=== PATIENT | male | born 1940 | race Caucasian/White ===

== ENCOUNTER 2018-11-15 12:47 | Observation (INO) ==
[2018-11-15] MEDS ORDERED: ASPIRIN PO ONE (12:56)
--- NOTE | 2018-11-15 13:33 | PROVIDER DOCUMENTATION ---
This chart was entered by Ruth Mojica Scribe, acting as scribe for Owen Kaplan MD. HPI-Chest Pain - General Chief Complaint: Chest Pain Stated Complaint: CHEST PAIN Time Seen by Provider: 11/15/18 12:57 Source: patient Allergies/Adverse Reactions: Patient Allergies Allergy/AdvReac Type Severity Reaction Status Date / Time No Known Allergies Allergy Verified 11/15/18 12:55 Home Medications: Home Medication List Medication Instructions Recorded Confirmed Last Taken Type Brimonidine 0.1% Ophth Soln 1 drop BOTH EYES TID@0800,1300,1800 07/25/12 11/15/18 11/15/18 09:00 History [Alphagan P 0.1% Ophth Soln] Dorzolamide/Timolol Ophth Soln 1 drop BOTH EYES TID@0800,1300,1800 07/25/12 11/15/18 11/15/18 09:00 History [Cosopt Ophth Soln] Dutasteride [Avodart] 0.5 mg PO DAILY 07/25/12 11/15/18 11/15/18 09:00 History Rosuvastatin Calcium [Crestor] 5 mg PO EVERY OTHER DAY 07/25/12 11/15/18 11/14/18 09:00 History Bupropion HCl 75 mg PO BID 11/15/18 11/15/18 11/15/18 09:00 History Clonazepam 0.5 mg PO HS 11/15/18 11/15/18 11/14/18 21:00 History Insulin Glargine,Hum.rec.anlog 26 unit SQ QAM@0800 11/15/18 11/15/18 11/15/18 08:00 History [Lantus Solostar] Liraglutide [Victoza] 1.8 mg SUBQ HS 11/15/18 11/15/18 11/14/18 21:00 History Losartan Potassium 25 mg PO DAILY 11/15/18 11/15/18 11/15/18 09:00 History Netarsudil Mesylat/Latanoprost 2.5 ml OP HS 11/15/18 11/15/18 11/15/18 09:00 History [Rocklatan 0.02%-0.005% Eye Drp] Tamsulosin [Flomax] 0.4 mg PO BID 11/15/18 11/15/18 11/15/18 09:00 History - History of Present Illness-CP Nature of Presenting Problem: Patient is a 78 year old male who presents with left side chest pain. States chest pain started last night. Denies shortness of breath. Location: reports: other (left side) Chest Pain Radiation: reports: no radiation Quality of Pain: reports: aching Severity in ED: mild Onset/Duration: last night Timing: still present Context/Activities at Onset: reports: light activity Modifying Factors: worse with: movement Associated Symptoms: reports: denies symptoms Similar Symptoms Previously?: Yes Recently Seen Here or By Another Healthcare Provider: No Review of Systems - Adult - REVIEW OF SYSTEMS - ADULT Constitutional: reports: no symptoms reported. denies: chills, fever, fatique Eyes: reports: no symptoms reported Ears, Nose, Mouth & Throat: reports: no symptoms reported Cardiovascular: reports: see HPI, chest pain. denies: irregular heart rate, palpitations Respiratory: reports: no symptoms reported. denies: cough, shortness of breath, wheezing Gastrointestinal: reports: no symptoms reported Genitourinary: reports: no symptoms reported Musculoskeletal: reports: no symptoms reported Integumentary: reports: no symptoms reported Neurological: reports: no symptoms reported Psychiatric: reports: no symptoms reported Endocrine: reports: no symptoms reported Hematologic/Lymphatic: reports: no symptoms reported Allergic/Immunologic: reports: no symptoms reported All Other Systems: Reviewed and Negative Past History - Adult - PAST MEDICAL HISTORY-ADULT Review of Records: reports: Old Records Reviewed, Social history reviewed & non- contributory. Major Childhood Illnesses: reports: denies history Cardiovascular: reports: HTN Respiratory: reports: denies history Gastrointestinal: reports: denies history Obstetrical/Gynecological: reports: denies history Genitourinary: reports: kidney disease, prostatitis Musculoskeletal: reports: denies history Neurological: reports: denies history Endocrine/Immune: reports: Diabetes Other Conditions: reports: denies history, cataract/glaucoma - PRIOR SURGERIES/PROCEDURES Surgical/Procedure History: reports: reviewed, not pertinent, back/neck (back), other (cataract removal, hemorrhoidectomy) - IMMUNIZATION STATUS Childhood Immunizations: See Nurse Assessment Flu Vaccine: See Nurse Assessment - FAMILY HISTORY Family History: reviewed, not pertinent - SOCIAL HISTORY Smoking: denies Substance Use: denies Physical Exam-General - PHYSICAL EXAM-ADULT Initial Vital Signs Reviewed: Yes - CONSTITUTIONAL General Appearance: alert, no apparent distress. negative: lethargic - HEAD, EARS, NOSE, MOUTH & THROAT HENMT: normocephalic/atraumatic, moist mucous membranes. negative: angioedema - RESPIRATORY Respiratory: chest non-tender, lungs clear, normal breath sounds. negative: crackles, rhonchi - CARDIOVASCULAR Cardiovascular: normal peripheral pulses, regular rate, rhythm. negative: tachycardia - GASTROINTESTINAL (ABDOMEN) Abdominal Exam: normal bowel sounds, non tender, soft. negative: guarding, rigid - MUSCULOSKELETAL Extremity: normal inspection. negative: deformity, erythema - SKIN Integumentary: normal color, normal turgor, warm/dry. negative: diaphoresis, ecchymosis, jaundice - NEUROLOGIC Neurologic: grossly normal. negative: aphasia, facial droop - PSYCHIATRIC Psych/Mental Status: normal mood/affect, oriented x 3. negative: anxious - HEART Score HEART Score: History: Moderately Suspicious HEART Score: ECG: Non-Specific Repolarization Disturbance/LBBB/PM HEART Score: Age: > or = 65 Years HEART Score: Risk Factors for Atherosclerotic Disease: > or = 3 Risk Factors or History of Atherosclerotic Disease HEART Score: Troponin: < or = Normal Limit Total HEART Score:: 6 Progress - PLAN OF CARE/RESULTS Result Diagrams: 11/15/18 13:30 11/15/18 13:30 - EKG 1 Time of EKG reading by physician:: 13:00 EKG Read and Signed by:: Owen Kaplan EKG Interpretation (*Must complete 3 of following elements*): Abnormal Rate: 63 Rhythm: sinus rhythm with 1st degree AV block [place]: normal Comments: otherwise normal ECG - XRAY 1 XRAY Study: Chest Impression: See EMR Report ( EXAM: CHEST-2 VIEWS HISTORY: chest pain TECHNIQUE: Chest two views COMPARISON: 06/16/2014 FINDINGS: The lungs are well expanded. The heart is not enlarged. The vessels are not distended. There are no infiltrates. No pleural effusions. Compression fracture in the upper lumbar spine. IMPRESSION: No acute abnormality. Electronically signed by Malick Alejandre 11/15/2018 1:44 PM 11/15/18 1344 Interpreting Physician: Malick Alejandre MD Dictated Date/Time: 11/15/18 1343 cc: Owen Kaplan MD; Yariel Pena MD) - CONSULTS/PCP/HOSPITALIST Notification #1 *Consult/PCP/Hospitalist*: Dr. Boone Time Discussed: 14:57 Reason/Comments: Dr. Kaplan consulted with Dr. Boone about patient Consult Disposition: other (patient is a Dr. Pena patient.) #2 Consult: Dr. Pena Time Discussed: 15:03 Reason/Comments: Dr. Kaplan consulted with Dr. Pena about patient. Consult Disposition: Admit, other (consult cardiology) Departure - Departure Date of Disposition Decision: 11/16/18 Time of Disposition Decision: 16:10 DIAGNOSIS: Chest pain Disposition: ADMITTED INPATIENT 09 Certified Medical Emergency: Emergent Condition: Stable - Critical Care Note This patient required my direct & personal management of CC.: No Attestation - Physician/ QUINTIN Attestation Patient care was provided by Advanced Practice Provider:: No The physician spent face to face time with patient:: Yes Advanced Practice Provider documentation review:: Supervising physician onsite and consulted in the evaluation and care of this patient. The physician did have a face to face encounter with the patient. This chart was documented by the indicated scribe, (Ruth Mojica Scribe) and accurately reflects the services I performed and decisions made by me, Owen Kaplan MD, as attested by the provider's signature.
--- NOTE | 2018-11-15 13:34 | EKG Report ---
Test Performed on : 11/15/2018 1:00:21 PM Test Reason : chest pain Blood Pressure : / mmHG Vent. Rate : 063 BPM Atrial Rate : 063 BPM P-R Int : 326 ms QRS Dur : 080 ms QT Int : 400 ms P-R-T Axes : 024 015 054 degrees QTc Int : 409 ms Sinus rhythm. with 1st degree AV block. Otherwise normal ECG No previous ECGs available Unconfirmed Result
--- NOTE | 2018-11-15 13:46 | Diag Imaging Result Doc PS360 ---
EXAM: CHEST-2 VIEWS HISTORY: chest pain TECHNIQUE: Chest two views COMPARISON: 06/16/2014 FINDINGS: The lungs are well expanded. The heart is not enlarged. The vessels are not distended. There are no infiltrates. No pleural effusions. Compression fracture in the upper lumbar spine. IMPRESSION: No acute abnormality. Electronically signed by Malick Alejandre 11/15/2018 1:44 PM
[2018-11-15 14:06] LABS: HEMATOCRIT 36.6 % (42.0-52.0); HEMOGLOBIN 11.8 g/dL (14.0-18.0); MCH 30.5 PG (27-31); MCHC 32.2 g/dL (33-37); MCV 94.6 FL (81-99); RBC 3.87 XMIL (4.7-6.1); RDW 11.7 % (11.5-14.5); WBC 6.96 X1000 (4.8-10.8)
[2018-11-15 14:07] LABS: BASO# 0.04 X1000 (0.0-0.2); BASO% 0.6 % (0.0-0.8); EOS# 0.32 X1000 (0.0-0.7); EOS% 4.6 % (0.0-10.0); IMM GRAN# 0.02 X1000 (0.0-0.04); IMM GRAN% 0.3 % (0.0-0.5); LYMPH# 1.98 X1000 (1.2-3.4); LYMPH% 28.4 % (20.5-51.1); MONO# 0.74 X1000 (0.11-0.59); MONO% 10.6 % (1.7-9.3); MPV 11.9 FL (7.4-10.4); NEUT# 3.86 X1000 (1.4-6.5); NEUT% 55.5 % (42.2-75.2); PLT 186 X1000 (130-400)
[2018-11-15 14:22] LABS: INR 0.9; PROTIME 12.6 Seconds (11.0-16.0)
[2018-11-15 14:23] LABS: ALBUMIN 4.3 g/dL (3.5-5.0); CALCIUM 9.6 mg/dL (8.8-10.2); CREATININE 1.5 mg/dL (0.7-1.2); POTASSIUM 4.6 mmol/L (3.5-5.1); PTT 28.8 Seconds (22.3-41.8); TOTAL BILIRUBIN 0.3 mg/dL (0.20-1.00); TOTAL PROTEIN 6.4 g/dL (6.3-8.3)
[2018-11-15] MEDS ORDERED: ALPHAGAN 0.2% OPHTH SOLN OPH ONE (18:44)
[2018-11-15] MEDS ORDERED: COSOPT OPHTH SOLN OPH ONE (18:45)
[2018-11-15] MEDS ORDERED: INSULIN PEN NEEDLES MISC PRN (18:53)
[2018-11-15] MEDS: FLOMAX PO SCH (20:37)
[2018-11-15] MEDS: WELLBUTRIN PO SCH (20:38)
[2018-11-15] MEDS ORDERED: VICTOZA SUBQ SCH (21:00)
[2018-11-15] MEDS ORDERED: PATIENT'S OWN MED OPH SCH (21:00)
[2018-11-15] MEDS ORDERED: KLONOPIN PO SCH (21:00)
--- NOTE | 2018-11-15 22:14 | EKG Report ---
Test Performed on : 11/15/2018 9:31:26 PM Test Reason : chest pain Blood Pressure : / mmHG Vent. Rate : 060 BPM Atrial Rate : 060 BPM P-R Int : 308 ms QRS Dur : 082 ms QT Int : 410 ms P-R-T Axes : 061 028 063 degrees QTc Int : 410 ms Sinus rhythm. with 1st degree AV block. Otherwise normal ECG When compared with ECG of 15-NOV-2018 13:00, (Unconfirmed) No significant change was found Confirmed by Yariel Pena MD ([id number]) on 11/19/2018 11:44:18 AM
[2018-11-16] MEDS ORDERED: D50W SYRINGE ONE (06:15)
[2018-11-16] MEDS ORDERED: LANTUS INSULIN SUBQ SCH (08:00)
[2018-11-16] MEDS: ALPHAGAN 0.2% OPHTH SOLN BOTH EYES SCH ×2 (08:27→14:16)
[2018-11-16] MEDS: COSOPT OPHTH SOLN BOTH EYES SCH ×2 (08:28→14:16)
[2018-11-16] MEDS: WELLBUTRIN PO SCH (08:30)
[2018-11-16] MEDS: FLOMAX PO SCH (08:30)
[2018-11-16] MEDS ORDERED: COZAAR PO SCH (09:00)
[2018-11-16] MEDS ORDERED: AVODART PO SCH (09:00)
[2018-11-16] MEDS ORDERED: LEXISCAN ONE (10:00)
--- NOTE | 2018-11-16 13:31 | Diag Imaging Result Document ---
PROCEDURE NAME: MYOCARDIAL PERF SCAN, STR/REST - 11/16/2018 SUMMARY: The patient was administered 14.2 mCi of technetium-99m sestamibi, after which resting cardiac images were obtained. The patient was subsequently administered Lexiscan 0.4 mg intravenously after which the heart rate went from 65 beats per minute to 97 beats per minute, and the blood pressure went from 152/77 to 146/65. With Lexiscan, the patient denied chest discomfort. Following the administration of Lexiscan, the patient was administered 41.6 mCi of technetium 99-m sestamibi after which resting cardiac images were obtained. Baseline ECG demonstrated normal sinus rhythm and was within normal limits. With Lexiscan, there were no diagnostic ST-segment changes. SPECT images were reconstructed in the short, horizontal, vertical axis. Review of these images demonstrated no scintigraphic evidence of inducible myocardial ischemia or prior infarct. Gated images demonstrate a calculated left ventricular ejection fraction of 86%, with symmetrical wall motion/thickening. CONCLUSIONS: 1. Adequate response to Lexiscan. 2. Clinically negative for chest pain. 3. Electrocardiographically negative for Lexiscan-induced myocardial ischemia. 4. Lexiscan sestamibi images demonstrate no scintigraphic evidence of inducible myocardial ischemia. Normal left ventricular systolic function demonstrated. cc: MD Yariel Zaragoza MD
[2018-11-16] MEDS ORDERED: TYLENOL PO PRN (14:25)
[2018-11-16 15:44] VITALS: BP 125/59
[2018-11-16] MEDS ORDERED: CRESTOR PO SCH (21:00)
--- NOTE | 2018-12-01 07:35 | HISTORY AND PHYSICAL ---
He is an office patient of [facility] who presented to the emergency room with left-sided chest pain, the pain having started the night prior. Denies any shortness of breath. The pain is located on the left side. Does not seem to go anywhere in particular. It is described as a mild aching that began the night before, still present. It occurred during light activity. It is worse with movement. Had no associated symptoms. He has had this previously. ALLERGIES: None. MEDICATIONS AT HOME: 1. Avodart. 2. Crestor. 3. Wellbutrin. 4. Clonazepam. 5. Insulin glargine. 6. Victoza. 7. Losartan. In the ER he stated REVIEW OF SYSTEMS: GENERAL: He denied any chills, fever or fatigue. No change in visual acuity, irritation of the eyes, pupillary problems, visual problems, cataracts or glaucoma. EARS, NOSE AND THROAT: No pharyngitis, otitis, sinusitis. CARDIOVASCULAR: He denies any irregular heartbeats. No palpitations. No rapid heartbeats. No PND. No orthopnea. RESPIRATORY: He denies cough, shortness of breath or wheezing. GASTROINTESTINAL: No dysphagia, regurgitation, reflux, epigastric pain, melena, hematochezia, diarrhea, constipation. GENITOURINARY: No hematuria. Has a slow stream, on Flomax for the same. MUSCULOSKELETAL: No significant arthritides. SKIN: Clear. No lesions. NEUROLOGICAL: No focal neurological deficits, migraines, headaches, TIAs, syncopal episodes. PSYCHIATRIC: Negative. ENDOCRINE: No thyroid, adrenal, pituitary problems. HEMATOLOGICAL: No DVT, SVT, PTs. ALLERGIES: No asthma, wheezing, hayfever. PAST MEDICAL HISTORY: He has a history of hypertension, prostatitis with underlying kidney disease, cataracts, glaucoma, diabetes. He has had back and neck surgery. He has had a cataract removal and a hemorrhoidectomy. He denies smoking. PHYSICAL EXAMINATION: VITAL SIGNS: On the time of admission, the patient was febrile. HEENT: His head was normocephalic. Eyes were PERRL. EOMs intact. SC clear. Fundi benign. Nares patent. Oropharynx negative. NECK: Supple with bounding carotids without thyromegaly or lymphadenopathy. CHEST: Bilaterally clear breath sounds. No consolidative findings. No wheezing. CARDIOVASCULAR: Regular rhythm and rate. No murmurs, gallops, clicks or rubs. ABDOMEN: Soft. No hepatosplenomegaly. No CVA tenderness. Positive bowel sounds. MUSCULOSKELETAL: No inflamed joints, muscular tenderness. SKIN: Warm and dry. No significant lesions. NEUROLOGICAL: No CVA, facial weakness, TIAs. PSYCHIATRIC: Negative. HEART score was 6. He was admitted to the hospital with an initial EKG which showed a heart rate of 63, sinus rhythm, first degree block, otherwise negative. His chest x-ray showed that the lungs were well expanded. The heart was not enlarged. The vessels were not distended. There were no infiltrates, pleural effusions, compression fractures in the upper spine. Impression: No abnormalities. ADMITTING DIAGNOSIS: Chest pain. Admitted as an inpatient. cc: Yariel Pena MD
--- NOTE | 2018-12-01 20:04 | DISCHARGE SUMMARY ---
ADMISSION DATE: 11/15/2018 DISCHARGE DATE: 11/16/2018 HISTORY OF PRESENT ILLNESS: This is a 78-year-old male, a clinic patient of mine, who presented to the emergency room with atypical chest pain that has previously been worked up. He has a background history of type 2 diabetes, on Victoza and Lantus. He is also on losartan and Crestor for his hypertensive cholesterol issues. He takes [*]7.5 b.i.d. and clonazepam 0.5. He is on Avodart 0.5 daily and tamsulosin 0.4 mg. His database from this brief admission showed a chest x- ray that was interpreted as negative. There were some compression fractures in the upper lumbar spine, old. He had a nuclear perfusion scan with adequate response to Lexiscan, clinically negative for chest pain and electrocardiographically negative for Lexiscan-induced myocardial ischemia. The Lexiscan sestamibi images demonstrate no scintigraphic evidence of inducible myocardial ischemia. Normal left ventricular systolic function demonstrated. His EKGs were sinus rhythm, first-degree AV block at 0.308. Nonspecific ST segment changes. [place] was normal. Poor R- wave progression and no evolutionary changes. LABORATORY DATA: CBC: White count was 6.96, hematocrit 36.6, normochromic, normocytic, and platelet count was 186. Coags were negative. Chemistries: Serial troponins and MB bands were negative. Electrolytes were normal. BUN was 21, creatinine 1.5, GFR 45. LFTs were normal. DISPOSITION: The patient was discharged the following day with atypical chest pain, to continue his regular medicines, and we will see him in the office. cc: Yariel Pena MD
== END 2018-11-16 19:57 | disposition home or self-care (01) ==
LOC: P.ED 12:47 → P.MEDSURG 12:47
PROVIDERS: ADMIT Internal Medicine; ATTEND Internal Medicine